=== PATIENT | male | born 1955 | race Caucasian/White ===

== ENCOUNTER → 2017-12-18 11:23 | Outpatient (CLI) | payer OTHER, SELFPAY ==
[2017-12-18 11:53] LABS: Hemoglobin A1C 10.6 % (0.0-7.0)
[2017-12-18 12:17] LABS: Alanine Aminotransferase 110 U/L (12-78); Albumin Level 4.2 gm/dL (3.4-5.0); Albumin/Globulin Ratio 1.3 (1.1-1.8); Alkaline Phosphatase 76 U/L (46-116); Anion Gap 13.9 mEq/L (5-15); Aspartate Amino Transferase 111 U/L (15-37); Bilirubin,Total 0.6 mg/dL (0.2-1.0); Blood Urea Nitrogen 15 mg/dL (7-18); Calcium 9.4 mg/dL (8.5-10.1); Carbon Dioxide 24 mmol/L (21.0-32.0); Chloride 102 mmol/L (98-107); Chol/HDL Ratio 6.4 (1-3.5); Cholesterol 191 mg/dL (140-200); Creatinine,Serum 0.99 mg/dL (0.70-1.30); Estimated Glomerular Filt Rate 77 ml/min (>60); GFR (African American) 93 ML/MIN (>60); Globulin 3.3 gm/dl (1.3-3.2); Glucose 190 mg/dL (74-106); HDL Cholesterol 30 mg/dL (27-67); Potassium 3.9 mmoL/L (3.5-5.1); Sodium 136 mmol/L (136-145); Total Protein,Serum 7.5 gm/dL (6.4-8.2); Triglycerides 441 mg/dL (30-200)
== END ==
PROVIDERS: Visit Provider Family Medicine
DX: E11.9 Type 2 diabetes mellitus without complications (principal); E78.5 Hyperlipidemia, unspecified; E03.9 Hypothyroidism, unspecified
CPT/HCPCS: 36415; 80053; 80061; 83036

== ENCOUNTER → 2018-09-29 07:16 | Outpatient (CLI) | payer OTHER, SELFPAY ==
[2018-09-29 09:32] LABS: Alanine Aminotransferase 89 U/L (12-78); Albumin Level 4.4 gm/dL (3.4-5.0); Albumin/Globulin Ratio 1.3 (1.1-1.8); Alkaline Phosphatase 74 U/L (46-116); Anion Gap 16.1 mEq/L (5-15); Aspartate Amino Transferase 64 U/L (15-37); Bilirubin,Total 0.4 mg/dL (0.2-1.0); Blood Urea Nitrogen 16 mg/dL (7-18); Calcium 9.7 mg/dL (8.5-10.1); Carbon Dioxide 24 mmol/L (21.0-32.0); Chloride 101 mmol/L (98-107); Chol/HDL Ratio 6.6 (1-3.5); Cholesterol 198 mg/dL (140-200); Creatinine,Serum 1.02 mg/dL (0.70-1.30); Estimated Glomerular Filt Rate 74 ml/min (>60); GFR (African American) 90 ML/MIN (>60); Globulin 3.5 gm/dl (1.3-3.2); HDL Cholesterol 30 mg/dL (27-67); Potassium 4.1 mmoL/L (3.5-5.1); Prostate Specific Ag Screen 0.1 ng/mL (0.0-4.0); Sodium 137 mmol/L (136-145); T4 (Thyroxine) 8.9 ug/dl (4.7-13.3); Thyroid Stimulating Hormone 4.56 uIU/ml (0.358-3.740); Total Protein,Serum 7.9 gm/dL (6.4-8.2)
[2018-09-29 10:57] LABS: Glucose 236 mg/dL (74-106)
[2018-09-29 10:58] LABS: Triglycerides 494 mg/dL (30-200)
[2018-09-29 12:35] LABS: Hemoglobin A1C 8.7 % (0.0-7.0)
== END ==
PROVIDERS: Visit Provider Family Medicine
DX: E11.42 Type 2 diabetes mellitus with diabetic polyneuropathy (principal); E03.9 Hypothyroidism, unspecified; E78.5 Hyperlipidemia, unspecified
CPT/HCPCS: 36415; 80053; 80061; 83036; 84436; 84443; G0103

== ENCOUNTER → 2018-11-26 12:29 | Outpatient (CLI) | payer OTHER, SELFPAY ==
--- NOTE | 2018-11-26 12:41 | XR_ITS ---
XR foot RT min 3V HISTORY: ITS.REASON: RT FOOT PAIN ORDERING PHYSICIAN: Nelson Moore MD PATIENT AGE: 63 years COMPARISON: None FINDINGS: Bone density is normal. There is a linear 3 mm lucent line with corticated margins involving the lateral cortex of the proximal shaft of the fifth metatarsal bone. There is no abnormal angulation. There is no other lucent lines elsewhere. Lateral view shows small spurs at the talonavicular joint and along the superior aspect of the navicular/cuneiform joint. There is a 5 mm calcaneal spur and short calcification proximal to the spur likely related to the plantar aponeurosis. There is a small posterior calcaneal spur at the Achilles tendon attachment site. Impression: The linear lucent line involving lateral cortex of the fifth metatarsal bone could be a chronic incompletely healed stress fracture. Calcaneal spur and mild superior degenerative spurring involving the tarsal areas discussed above. Plantar calcification could be sequela from old plantar fasciitis.
== END ==
PROVIDERS: PCP Family Medicine; Visit Provider Family Medicine
DX: M79.671 Pain in right foot (principal)
CPT/HCPCS: 73630

== ENCOUNTER 2018-12-06 13:39 | Outpatient (RCR) | payer OTHER, SELFPAY ==
--- NOTE | 2018-12-06 14:18 | HMH.PTOPEV ---
PT Outpatient Evaluation Rehab PT Outpatient Evaluation Start: 12/06/18 13:50 Freq: Status: Active Protocol: Document 12/06/18 14:08 LARRY (Rec: 12/06/18 14:18 LARRY [id number]) Electronically Signed By See Jarvis, PT 12/06/18 14:08 Outpatient Therapy Subjective History Subjective History Pt reports insidious onset R foot pain beginning on 11/19/18 while working at [employer] ( [id number]). Pt reports localized lateral R foot pain as he worked throught the morning, 'and it got worse as the day went on'. Xrays of R foot have revealed a stress fx of the 5th metatarsal, the area in which the pt describes the localized s/s. Chief Complaint Pain,Swelling Symptom Type Ache,Sharp,Dull Symptoms Relieved By Nothing Symptoms Aggravated By Standing,Physical Activity, Walking Prior Functional Limitations Standing,Walking,Stairs Current Functional Limitations Standing,Walking,Stairs Symptom Description Constant and Continuous Level of pain today (0-10) 8 Pain scale - at its best (0-10) 8 Pain scale - at its worst (0-10) 10 Ankle/Foot Eval Gait Observation General Gait Pattern Observation Antalgic Gait,Decrease Weight Bear (R) Assistive Device Ambulation Assistive Device None Palpation Tenderness right Ankle/Foot Palpation Findings Tenderness Ankle/Foot Palpation Overall Comment 3/4 5th metatarsal ROM left Ankle/Foot Dorsiflexion w/Knee Extended 0-10 Active Range Motion (degrees) Ankle/Foot Plantar Flexion Active Range 0-40 of Motion (degrees) Ankle/Foot Eversion Active Range of 0-20 Motion (degrees) Ankle/Foot Inversion Active Range of 0-30 Motion (degrees) right Ankle/Foot Dorsiflexion w/Knee Extended 0-10 Active Range Motion (degrees) Ankle/Foot Plantar Flexion Active Range 0-40 of Motion (degrees) Ankle/Foot Eversion Active Range of 0-20 Motion (degrees) Ankle/Foot Inversion Active Range of 0-30 Motion (degrees) Ankle/Foot ROM Limitations Pain MMT left Ankle Dorsiflexion Strength Grade 5 Normal Ankle Plantarflexion Strength Grade 5 Normal Foot Eversion Strength Grade 5 Normal Foot Inversion Strength Grade 5 Normal right Ankle Dorsiflexion Strength Grade 4 Good Ankle Plantarflexion Strength Grade 4 Good Foot Eversion Strength Grade 4- Good- Foot Inversion Strength Grade
== END 2018-12-06 13:45 | disposition home or self-care (01) ==
LOC: PT 13:39
PROVIDERS: Visit Provider Emergency Medicine
DX: S92.901K Unspecified fracture of right foot, subsequent encounter for fracture with nonunion (principal); M84.374A Stress fracture, right foot, initial encounter for fracture; M79.671 Pain in right foot; M72.2 Plantar fascial fibromatosis
CPT/HCPCS: 97163

== ENCOUNTER → 2018-12-10 11:55 | Outpatient (CLI) | payer OTHER, SELFPAY ==
--- NOTE | 2018-12-10 12:01 | XR_ITS ---
XR foot RT min 3V HISTORY: ITS.REASON: RIGHT FOOT PAIN , ATTENTION TO 5TH METATARSAL ORDERING PHYSICIAN: Nelson Moore MD PATIENT AGE: 63 years COMPARISON: Right foot 11/26/2018 FINDINGS: There are now has been extension of the radiolucent line proximal shaft fifth metatarsal through the entire width of the metatarsal consistent with a semiacute nondisplaced fracture. The remaining metatarsals and all phalanges appear intact. Again noted are the calcaneal spurs described previously. There is mild spurring of the navicular first cuneiform articulation. IMPRESSION: Semiacute nondisplaced fracture base of fifth metatarsal
== END ==
PROVIDERS: PCP Family Medicine; Visit Provider Family Medicine
DX: M84.374A Stress fracture, right foot, initial encounter for fracture (principal); S99.191A Other physeal fracture of right metatarsal, initial encounter for closed fracture
CPT/HCPCS: 73630

== ENCOUNTER → 2018-12-14 16:21 | Outpatient (CLI) | payer OTHER, SELFPAY ==
--- NOTE | 2018-12-14 16:30 | XR_ITS ---
XR chest 2V HISTORY: ITS.REASON: OCCASIONAL COUGH ORDERING PHYSICIAN: [place] DPM PATIENT AGE: 63 years COMPARISON: 10/31/2013 FINDINGS: The cardiomediastinal silhouette and pulmonary vascularity are within normal limits. The lungs are clear without infiltrates, suspicious nodules, or pleural effusions. Degenerative changes thoracic spine. IMPRESSION: No change with no acute finding
[2018-12-14 17:21] LABS: Basophils # 0.1 K/mm3 (0-0.2); Basophils % 0.6 % (0.1-2.0); Eosinophils # 0.2 K/mm3 (0.0-0.4); Eosinophils % 2.4 % (0.1-12.0); Hematocrit 46.5 % (42.0-52.0); Hemoglobin 14.9 g/dL (14.1-18.0); Lymphocytes # 2.5 K/mm3 (0.7-4.5); Lymphocytes % 30.3 % (10-50); Mean Corpuscular Hemoglobin 27.3 pg (27.0-31.2); Mean Corpuscular Volume 85.5 fl (80-94); Mean Platelet Volume 7.8 fl (7.4-10.4); Monocytes # 0.6 K/mm3 (0.1-1.0); Monocytes % 7.1 % (1.7-9.3); Neutrophils # 4.8 K/mm3 (1.8-7.8); Neutrophils % 59.6 % (37.0-80.0); Platelet Count 187 K/mm3 (142-424); Red Blood Count 5.44 M/mm3 (4.60-6.20); Red Cell Distribution Width 13.6 % (11.5-17.5); White Blood Count 8.1 K/mm3 (4.8-10.8)
[2018-12-14 18:47] LABS: Blood Urea Nitrogen 11 mg/dL (7-18); Calcium 10.1 mg/dL (8.5-10.1); Carbon Dioxide 21 mmol/L (21.0-32.0); Chloride 105 mmol/L (98-107); Creatinine,Serum 1.05 mg/dL (0.70-1.30); Estimated Glomerular Filt Rate 72 ml/min (>60); GFR (African American) 87 ML/MIN (>60); Glucose 194 mg/dL (74-106); Sodium 141 mmol/L (136-145)
== END ==
PROVIDERS: PCP Family Medicine; Visit Provider Podiatrist
DX: Z01.818 Encounter for other preprocedural examination (principal); S99.191A Other physeal fracture of right metatarsal, initial encounter for closed fracture
CPT/HCPCS: 36415; 71046; 80048; 85025; 93005

== ENCOUNTER → 2019-01-12 10:23 | Outpatient (CLI) | payer OTHER, SELFPAY ==
--- NOTE | 2019-01-12 10:27 | XR_ITS ---
PROCEDURE: XR FOOT WT BEARING RT 3V CLINICAL INDICATION: post-op Follow-up surgery COMPARISON: from 12/14/2018 FINDINGS: S/p ORIF 5th metatarsal fracture. Longitudinal screw is present with good alignment of the 5th metatarsal. There is some mild callus formation noted laterally. IMPRESSION: Status post ORIF healing 5th metatarsal fracture Dictated by: Aaron Bah MD 01/13/2019 04:45 Signed by: <Electronically signed by Aaron Bah MD in [place]> 01/13/2019 04:45
== END ==
PROVIDERS: PCP Family Medicine; Visit Provider Podiatrist
DX: Z98.890 Other specified postprocedural states (principal)
CPT/HCPCS: 73630

== ENCOUNTER → 2019-02-02 08:25 | Outpatient (CLI) | payer OTHER, SELFPAY ==
--- NOTE | 2019-02-02 08:30 | XR_ITS ---
PROCEDURE: XR FOOT WT BEARING RT 3V CLINICAL INDICATION: psot-op Follow-up surgery/ORIF COMPARISON: XR FOOT WT BEARING RT 3V from 01/12/2019 FINDINGS: S/p ORIF 5th metatarsal with longitudinal screw in place. Fracture line is somewhat less visible suggesting healing. There is good alignment. Degenerative changes are present in the midfoot and 1st metatarsophalangeal junction and there is some calcification anterior to a small calcaneal spur. IMPRESSION: Healing 5th metatarsal fracture status post ORIF Dictated by: Aaron Bah MD 02/02/2019 09:40 Signed by: <Electronically signed by Aaron Bah MD in [place]> 02/02/2019 09:40
== END ==
PROVIDERS: PCP Family Medicine; Visit Provider Podiatrist
DX: Z98.890 Other specified postprocedural states (principal)
CPT/HCPCS: 73630

== ENCOUNTER 2019-04-12 16:00 | Outpatient (RCR) | payer OTHER, SELFPAY ==
--- NOTE | 2019-02-23 17:40 | HMH.PTOPEV ---
PT Outpatient Evaluation Rehab PT Outpatient Evaluation Start: 02/23/19 16:54 Freq: Status: Active Protocol: Document 02/23/19 17:21 NIKO (Rec: 02/23/19 17:40 [id number]) Electronically Signed By Vinicius Stiles, PT 02/23/19 17:21 Outpatient Therapy Subjective History Subjective History 63 year old male pt. is referred to PT 2 1/2 months post op R Gomez Fx. Injury occured about 3 months ago. Pt . reports he was at work and R foot began to hurt. It gradually got worse until he could barely WB. Pt. reports no BRADFORD. Pt. went to see M.D. and surgery was performed. Pt. has been wearing boot since surgery. He has now been progressed into wearing lace brace in the mornings and the boot during the afternoon. Pt. reports his foot only hurts when pressure is placed on the incision area. Pt. reports he has diabetes and arthritis. States he often has numbness in Mark feet. Note and eval done by student PT Robert Garcia Chief Complaint Pain,Stiff,Weakness Symptom Type Sharp Symptoms Relieved By Rest/Positioning,Ice Symptoms Aggravated By Physical Activity,Walking Prior Functional Limitations None Current Functional Limitations Squatting,Recreation Activity, Walking,Stairs,Balance Symptom Description Intermittent Level of pain today (0-10) 0 Pain scale - at its best (0-10) 0 Pain scale - at its worst (0-10) 3 Ankle/Foot Eval Gait Observation General Gait Pattern Observation Ataxic Gait,Decrease Weight Bear (R),Decrease Stride Lngth (R) Assistive Device Ambulation Assistive Device None Palpation Tenderness right Ankle/Foot Palpation Findings Tenderness Ankle/Foot Palpation Overall Comment TTP over base of 5th metatarsal ROM left Ankle/Foot ROM Reason Not Measured Within Functional Limits Great Toe ROM Reason Not Measured Within Functional Limits right Ankle/Foot Dorsiflexion w/Knee Extended 7 Active Range Motion (degrees) Ankle/Foot Dorsiflexion w/Knee Extended 13 Passive Range (degrees) Ankle/Foot Plantar Flexion Active Range 35 of Motion (de
== END 2019-04-12 16:05 | disposition home or self-care (01) ==
LOC: PT 16:00
PROVIDERS: Visit Provider Podiatrist
DX: S99.191D Other physeal fracture of right metatarsal, subsequent encounter for fracture with routine healing (principal); Z98.890 Other specified postprocedural states
CPT/HCPCS: 97010; 97014; 97110; 97163; 97164; G0283

== ENCOUNTER → 2020-02-10 07:33 | Outpatient (CLI) | payer OTHER, SELFPAY ==
[2020-02-10 10:15] LABS: Alanine Aminotransferase 63 U/L (12-78); Albumin Level 4.8 g/dl (3.5-5.0); Albumin/Globulin Ratio 1.6 (1.1-1.8); Alkaline Phosphatase 106 U/L (38-126); Anion Gap 18.8 mEq/L (5-15); Aspartate Amino Transferase 96 U/L (17-59); Bilirubin,Total 0.6 mg/dl (0.2-1.3); Blood Urea Nitrogen 18 mg/dl (9-20); Calcium 10.7 mg/dl (8.4-10.2); Carbon Dioxide 22 mmol/L (22.0-30.0); Chloride 103 mmol/L (98-107); Chol/HDL Ratio 6.5 (1-3.5); Cholesterol 213 mg/dl (140-200); Estimated Glomerular Filt Rate 76 ml/min (>60); GFR (African American) 92 ML/MIN (>60); Glucose 276 mg/dl (74-100); HDL Cholesterol 33 mg/dl (40-60); Potassium 4.8 mmoL/L (3.5-5.1); Sodium 139 mmol/L (136-145); Total Protein,Serum 7.8 g/dl (6.3-8.2)
[2020-02-10 10:23] LABS: Triglycerides 792 mg/dl (30-150)
[2020-02-10 10:26] LABS: Direct LDL Cholesterol 84.16 mg/dL (100-129)
[2020-02-10 10:46] LABS: Prostate Specific Ag Screen 0.1 ng/ml (0.0-4.0)
[2020-02-10 14:24] LABS: Hemoglobin A1C 12.2 % (4.0-6.0)
== END ==
PROVIDERS: Visit Provider Family Medicine
DX: E11.42 Type 2 diabetes mellitus with diabetic polyneuropathy (principal); E03.9 Hypothyroidism, unspecified; E78.5 Hyperlipidemia, unspecified; Z12.5 Encounter for screening for malignant neoplasm of prostate
CPT/HCPCS: 36415; 80053; 80061; 83036; G0103

== ENCOUNTER 2020-02-15 09:35 | Emergency (ER) | payer OTHER, SELFPAY ==
[2020-02-15 09:40] VITALS: BP 137/90; PULSE 79; RESP 19; TEMP 36.6; O2SAT 99; BMI 30.7
--- NOTE | 2020-02-15 09:52 | HMH.EDUTC ---
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 - Gaurang Inquiry Pt receiving controlled substance: No Vital Signs: 02/15/20 09:40 02/15/20 10:12 Temperature 97.8 F 97.8 F Temperature Source Oral Oral Pulse Rate 79 Pulse Rate [Left] 79 Respiratory Rate 19 19 Blood Pressure 137/90 Blood Pressure [Right Arm] 137/90 Blood Pressure Mean [Right Arm] 105 Blood Pressure Source [Right Arm] Automatic Cuff Blood Pressure Position [Right Arm] Sitting 02 Sat by Pulse Oximetry 99 Oxygen Delivery Method Room Air Orders (Tests/Meds): ORDERS Category Date Time Status CXR 2 view (NOT portable) [XR chest 2V] Stat Exams 02/15/20 09:57 Taken Covid-19 Nasal PCR Sendout Jaron Stat Lab 02/15/20 10:00 Received 12-lead EKG Request [ECG Request by /Juanjose] Stat Y 02/15/20 10:35 Ordered - Radiology Data #1 Image(s): Chest Image Reviewed: Yes I reviewed the patient's radiology image Preliminary Findings: No Infiltrates Seen - ECG Data Tracing #1 ECG initial impression date: 02/15/20 ECG initial impression time: 10:58 ECG normal with no acute: arrhythmias, ischemia, conduction abnormalities, chamber hypertrophy Normal Sinus Rhythm: Yes ECG compared to prior tracings: there are no significant changes Medical Decision Narrative: I had him transferred to the er for further evaluation due to the new onset dyspnea upon exertion, his history of diabetes and his history of the cva. [facility] [place] HPI - General Stated complaint: cg,shaniqua gatica sob Time Seen by Provider: 02/15/20 09:40 - History of Present Illness Provider Complaint: He c/o feeling short of breath. He states that this symptoms started a one day last week (approx), but since Thursday (4 days) his shortness of breath upon exertion has became significantly worse. He denies any chest pain. He is diabetic. He has a history of having a CVA several years ago, but he has denies any lasting effect from this. - Related Data Home Medications Medication Instructions Recorded Confirmed esomeprazole magnesium 20 mg 20 mg PO DAILY 12/14/18 04/08/19 capsule,delayed release gabapentin 300 mg capsule 300 mg PO BID #180 cap 12/14/18 04/08/19 levothyroxine 75 mcg tablet 75 mcg PO DAILY #90 tab 12/14/18 04/08/19 sitagliptin 50 mg-metformin ER 1 tab PO DAILY #60 tab 12/14/18 04/08/19 1,000 mg tablet,extended release 24h mp atorvastatin 40 mg tablet 40 mg PO DAILY #90 tab 01/05/19 04/08/19 empagliflozin 25 mg tablet 25 mg PO DIRECTED #30 tab 01/05/19 04/08/19 Glucosamine Sulfate Dipot Chlr 1,000 mg PO DAILY 03/31/19 04/08/19 [Glucosamine] Allergies Allergy/AdvReac Type Severity Reaction Status Date / Time acetaminophen [From PERCOCET] Allergy Mild Verified 02/15/20 10:06 oxycodone [From PERCOCET] Allergy Mild Verified 02/15/20 10:06 [facility] History - Hepatitis A Screen Attestation statement:: This patient has been screened for Hepatitis A risk factors. I have reviewed the patient's past medical history: Yes Medical History: Reports:: Diabetes Mellitus Type 2, Gastroesophageal Reflux Disease(GERD), Hyperlipidemia Denies:: Cancer, Diabetes Mellitus Type 1, Internal Pacemaker, MRSA, Seizures Other Medical History: Reports: Hypothyroidism, Thyroid Disease. Denies: Blood Transfusion React
--- NOTE | 2020-02-15 09:57 | XR_ITS ---
PROCEDURE: XR CHEST 2V CLINICAL HISTORY: cough COMPARISON: CR CXR CHEST(2 VIEWS-NOT PORTABLE) from 07/04/2013 CR CXR CHEST(2 VIEWS-NOT PORTABLE) from 10/31/2013 FINDINGS: The cardiomediastinal silhouette and pulmonary vascularity are within normal limits. The lungs are clear without infiltrates, suspicious nodules, or pleural effusions. Old fracture of the left 6th rib anteriorly. Degenerative changes thoracic spine. IMPRESSION: No acute findings. Dictated by: Aaron Bah MD 02/15/2020 11:21 Aaron Bah MD in [place] 02/15/2020 11:21
[2020-02-15 10:12] VITALS: BP 137/90; PULSE 79; RESP 19; TEMP 36.6; O2SAT 99
--- NOTE | 2020-02-15 10:43 | ECG_ITS ---
APPROVED REPORT Exam: Resting ECG HR:76 bpm ECG Measurements Heart Rate 76 AXES WA 152 P 53 QRSd 98 QRS 21 QT 394 T 38 QTc 443 <Conclusion> Normal sinus rhythm Normal ECG Electronically signed by : Yohannes Mulligan, 02/17/2020 07:30:06
[2020-02-15 11:02] VITALS: BP 162/109; PULSE 77; RESP 17; TEMP 36.4; O2SAT 98; BMI 25.0
--- NOTE | 2020-02-15 11:03 | HMH.EDGENADL ---
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 If you have any new, changing, worsening, or concerning symptoms, come back to the emergency department. Referrals: Nelson Moore MD [Primary Care Provider] - - Critical Care Critical Care Time: No Attestation: On 02/15/20, the high probability of a clinically significant, sudden or life threatening deterioration of the following system(s) required my full and direct attention, intervention and personal management. The time I documented below is in addition to time spent performing reported procedures but includes the following listed in this critical care notation. Medical Decision Making - Medical Records Medical records reviewed: Yes: I reviewed the patient's medical records. MR Comment: 84-year-old male with history of diabetes presents the emergency department with persistent cough and shortness of breath that he states has resolved. He denies any headache or shortness of breath at this time. He denies chest pain. He arrives to the ED hemodynamically stable, with reassuring vital signs, and looks well on exam. He is not tachypneic and oxygen saturation is 94% on room air. He has been coronavirus swabbed, will get labs and reassess. On reassessment, patient remains well. Labs reviewed, he normally has an anion gap, looking at prior visits, but checked a VBG. He was given some fluids, he states that his son is in the hospital and he does not want a further work-up at this time. Given the he has no complaints, states that he feels well and wants to leave, will discharge him. No emergent reason to do further evaluation at this time, I did advise that he follow closely with his PCP in the next couple of days. He was given strict return precautions and discharge instructions including follow-up for further evaluation and treatment and verbalized understanding and agreement to the plan. Safe to discharge. - Gaurang Inquiry Pt receiving controlled substance: No Vital Signs: 02/15/20 09:40 02/15/20 10:12 02/15/20 11:02 Temperature 97.8 F 97.8 F 97.5 F L Temperature Source Oral Oral Oral Pulse Rate 79 Pulse Rate [Left] 79 77 Respiratory Rate 19 19 17 Blood Pressure 137/90 Blood Pressure [Right Arm] 137/90 162/109 H Blood Pressure Mean [Right Arm] 105 126 Blood Pressure Source [Right Arm] Automatic Cuff Automatic Cuff Blood Pressure Position [Right Arm] Sitting Sitting 02 Sat by Pulse Oximetry 99 98 Oxygen Delivery Method Room Air Room Air 02/15/20 11:07 02/15/20 12:26 02/15/20 12:30 Temperature Temperature Source Pulse Rate Pulse Rate [Left] 77 69 68 Respiratory Rate 19 Blood Pressure Blood Pressure [Right Arm] 137/86 146/91 H 138/91 H Blood Pressure Mean [Right Arm] 103 109 106 Blood Pressure Source [Right Arm] Automatic Cuff Automatic Cuff Blood Pressure Position [Right Arm] Sitting Sitting 02 Sat by Pulse Oximetry 95 97 97 Oxygen Delivery Method Room Air Room Air Room Air - Lab Data Lab Results 02/15/20 11:07: WBC 7.8, RBC 5.61, Hgb 16.7, Hct 49.0, MCV 87.5, MCH 29.9, MCHC 34.1, RDW 14.3, Plt Count 173, MPV 8.1, Neut % (Auto) 70.0, Lymph % (Auto) 21.7, [place] % (Auto) 5.9, Eos % (Auto) 1.9, Baso % (Auto) 0.5, Neut # (Auto) 5.4, Lymph # (Auto) 1.7, [place] # (Auto) 0.5, Eos # (Auto) 0.2, Baso # (Auto) 0.0 02/15/20 11:07: Sodium 140, Potassium 4.0, Chloride 105, Carbon Dioxide 22, Anion Gap 17
[2020-02-15 11:07] VITALS: BP 137/86; PULSE 77; RESP 19; O2SAT 95
[2020-02-15 11:20] LABS: Chloride 105 mmol/L (98-107); Sodium 140 mmol/L (136-145)
[2020-02-15 11:23] LABS: Blood Urea Nitrogen 13 mg/dl (9-20); Calcium 10.4 mg/dl (8.4-10.2); Carbon Dioxide 22 mmol/L (22.0-30.0); Creatinine Clearance Estimated 91 mL/min (50-200); Estimated Glomerular Filt Rate 76 ml/min (>60); GFR (African American) 92 ML/MIN (>60); Glucose 265 mg/dl (74-100)
[2020-02-15 11:27] LABS: Basophils % 0.5 % (0.1-2.0); Eosinophils # 0.2 K/mm3 (0.0-0.4); Eosinophils % 1.9 % (0.1-12.0); Hemoglobin 16.7 g/dL (14.1-18.0); Lymphocytes # 1.7 K/mm3 (0.7-4.5); Lymphocytes % 21.7 % (10-50); Mean Corpuscular HGB Conc 34.1 g/dL (31.8-35.4); Mean Corpuscular Hemoglobin 29.9 pg (27.0-31.2); Mean Corpuscular Volume 87.5 fl (80-94); Mean Platelet Volume 8.1 fl (7.4-10.4); Monocytes # 0.5 K/mm3 (0.1-1.0); Monocytes % 5.9 % (1.7-9.3); Neutrophils # 5.4 K/mm3 (1.8-7.8); Platelet Count 173 K/mm3 (142-424); Red Blood Count 5.61 M/mm3 (4.60-6.20); Red Cell Distribution Width 14.3 % (11.5-17.5); White Blood Count 7.8 K/mm3 (4.8-10.8)
--- NOTE | 2020-02-15 11:35 | PC.NURSE ---
Spoke with Calista in lab, no extra blood needed for the VBG, they can run that off what blood they have.
[2020-02-15 11:36] LABS: Troponin I < 0.01 ng/ml (0.00-0.034)
[2020-02-15 12:26] VITALS: BP 146/91; PULSE 69; O2SAT 97
[2020-02-15 12:30] VITALS: BP 138/91; PULSE 68; O2SAT 97
[2020-02-15 13:12] LABS: VBG PCO2 43.3 mmol/L (35-51); VBG PH 7.26 mmol/L (7.31-7.41); VBG PO2 53.2 mmol/L (28-40); VBG Total CO2 20.4 mmol/L (23-27)
[2020-02-17 10:25] LABS: Covid-19 Nasal PCR Sendout Lex NOT DETECTED
--- NOTE | 2020-02-17 10:46 | PC.NURSE ---
Spoke to patient regarding his COVID19 swab results. Informed him they were negative.
== END 2020-02-15 13:40 | disposition still patient (30) ==
LOC: UTC 09:41 → ER 10:52
PROVIDERS: Nurse Practitioner Family; Emergency Provider Emergency Medicine; PCP Family Medicine
DX: E11.65 Type 2 diabetes mellitus with hyperglycemia (principal); Z03.818 Encounter for observation for suspected exposure to other biological agents ruled out; E78.5 Hyperlipidemia, unspecified; E03.9 Hypothyroidism, unspecified; Z88.5 Allergy status to narcotic agent; Z86.73 Personal history of transient ischemic attack (TIA), and cerebral infarction without residual deficits; K21.9 Gastro-esophageal reflux disease without esophagitis; Z79.899 Other long term (current) drug therapy
CPT/HCPCS: 71046; 80048; 82803; 84484; 85025; 93005; 99291; U0004

== ENCOUNTER 2020-04-30 13:26 | Emergency (ER) | payer OTHER, SELFPAY ==
[2020-04-30 13:50] VITALS: BP 118/79; PULSE 84; RESP 20; TEMP 37.1; O2SAT 97; BMI 31.9
--- NOTE | 2020-04-30 14:29 | HMH.EDUTC ---
[facility] [place] Clinical Impression: Bronchitis, Exposure to COVID-19 virus Disposition: Home, Self-Care Condition on Discharge: Good Instructions: DI for Acute Bronchitis, Preventing the Spread of Coronavirus Discharge Instructions Additional Instructions: Drink plenty of fluids. Take tylenol or ibuprofen for pain or fever. Take the medications as directed. Follow up with your regular doctor. GO TO THE ER FOR ANY WORSENING SYMPTOMS Prescriptions: Benzonatate [Tessalon Perle 100mg Cap] 100 mg PO TIDP PRN #30 cap PRN Reason: Cough Transmission Status: Received by [id number] Azithromycin [Z-Clifton 250mg Tab*] 250 mg PO UD DOSE PK #6 tab Transmission Status: Received by [id number] Referrals: Nelson Moore MD [Primary Care Provider] - Forms: Work/School Release Time of Disposition: 14:33 Medical Decision Making - Medical Records Medical records reviewed: No: I reviewed the patient's medical records. - Gaurang Inquiry Pt receiving controlled substance: No Vital Signs: 04/30/20 13:50 04/30/20 14:59 Temperature 98.8 F 98.8 F Temperature Source Oral Oral Pulse Rate 84 Pulse Rate [Right Brachial] 84 Respiratory Rate 20 14 Blood Pressure 118/79 Blood Pressure [Right Arm] 118/79 Blood Pressure Mean [Right Arm] 92 Blood Pressure Source [Right Arm] Automatic Cuff Blood Pressure Position [Right Arm] Sitting 02 Sat by Pulse Oximetry 97 Oxygen Delivery Method Room Air Orders (Tests/Meds): ORDERS Category Date Time Status Covid-19 Nasal PCR Sendout Jaron Routine Lab 04/30/20 13:50 Received [facility] [place] HPI - General Stated complaint: wants covid test Time Seen by Provider: 04/30/20 14:30 Mode of Arrival: Ambulatory Source of Information: Patient Limitations: No Limitations Description of Symptoms (Recalled from Triage Doc. by RN): PATIENT C/O COUGH AND CHEST TIGHTNESS. REQUESTING COVID TEST HEENT Symptoms (Recalled from RN notes): No Resp Symptoms (Recalled from RN notes): Yes Skin Symptoms (Recalled from RN notes): No MS Symptoms (Recalled from RN notes): No Functional Status (Recalled from RN notes): WNL - History of Present Illness Provider Complaint: he states that for the past 2 days he has had a cough and sinus drainage. He denies any known exposure to covid. - Related Data Home Medications Medication Instructions Recorded Confirmed esomeprazole magnesium 20 mg 20 mg PO DAILY 12/14/18 04/08/19 capsule,delayed release gabapentin 300 mg capsule 300 mg PO BID #180 cap 12/14/18 04/08/19 levothyroxine 75 mcg tablet 75 mcg PO DAILY #90 tab 12/14/18 04/08/19 sitagliptin 50 mg-metformin ER 1 tab PO DAILY #60 tab 12/14/18 04/08/19 1,000 mg tablet,extended release 24h mp atorvastatin 40 mg tablet 40 mg PO DAILY #90 tab 01/05/19 04/08/19 empagliflozin 25 mg tablet 25 mg PO DIRECTED #30 tab 01/05/19 04/08/19 Glucosamine Sulfate Dipot Chlr 1,000 mg PO DAILY 03/31/19 04/08/19 [Glucosamine] Previous Rx's Medication Instructions Recorded Azithromycin [Z-Clifton 250mg Tab*] 250 mg PO UD DOSE PK #6 tab 04/30/20 Benzonatate [Tessalon Perle 100mg 100 mg PO TIDP PRN #30 cap 04/30/20 Cap] Allergies Allergy/AdvReac Type Severity Reaction Status Date / Time acetaminophen [From PERCOCET] Allergy Mild Verified 02/15/20 10:06 oxycodone [From PERCOCET] Allergy Mild Verified 02/15/20 10:06 - Worker's Comp Is this a Worker's Comp case?: No [facility] History - Hepatitis A Screen Drug use history?: No High risk sexual behaviors?: No History of sexually transmitted infection?: No Currently employed?: No Childcare worker?: No Do you have indoor plumbing?: Yes Do you have electricity?: Yes Attestation statement:: This patient has been screened for Hepatitis A risk factors. I have reviewed the patient's past medical history: Yes Medical History: Reports:: Diabetes Mellitus Type 2, Gastroesophageal Reflux Disease(GERD), Hyperlipidemia
[2020-04-30 14:59] VITALS: BP 118/79; PULSE 84; RESP 14; TEMP 37.1; O2SAT 98
[2020-05-02 15:25] LABS: Covid-19 Nasal PCR Sendout Lex Positive
--- NOTE | 2020-05-02 16:37 | PC.NURSE ---
CALLED PT TO LET THEM KNOW THAT THERE TEST RESULTS CAME BACK POSITIVE.
== END 2020-04-30 15:01 | disposition home or self-care (01) ==
PROVIDERS: Emergency Provider Nurse Practitioner Family; PCP Family Medicine
DX: U07.1 COVID-19 (principal); K21.9 Gastro-esophageal reflux disease without esophagitis; E78.5 Hyperlipidemia, unspecified; E03.9 Hypothyroidism, unspecified; E11.9 Type 2 diabetes mellitus without complications; Z79.899 Other long term (current) drug therapy
CPT/HCPCS: 99201; U0004

== ENCOUNTER → 2021-11-05 11:44 | Outpatient (CLI) | payer OTHER, SELFPAY ==
--- NOTE | 2021-11-05 11:51 | XR_ITS ---
FINAL REPORT CLINICAL HISTORY: SOB; COUGH COMPARISON: February 05, 2020 FINDINGS: Two views of the chest were obtained. The heart size and pulmonary vascularity are within normal limits. The mediastinum is normal. No acute pulmonary abnormality is identified. There is no pneumothorax. The bony thorax is intact. IMPRESSION: No active cardiopulmonary disease. Reviewed, Interpreted and Dictated by Eric Sorto III, MD Transcribed by Donna Schwab Authenticated and [facility]
== END ==
PROVIDERS: PCP Family Medicine; Visit Provider Family Medicine
DX: R05.9 Cough, unspecified (principal)
CPT/HCPCS: 71046

== ENCOUNTER → 2022-02-05 12:42 | Outpatient (CLI) | payer OTHER, SELFPAY ==
[2022-02-05 13:35] VITALS: PULSE 84; PULSE 87
--- NOTE | 2022-02-05 13:56 | CA_ITS ---
APPROVED REPORT EXAM: Comprehensive 2D, Doppler, and color-flow Echocardiogram Maths Tutor: Cathryn Souza RT(R) Ht: 5 ft 7 in Wt: 209lbs BSA: 2.06 BP: 130/84 mmHg Indications: AGUAYO, hyperlipidemia, DM, GERD 2D Dimensions LVOT 2.25 cm (M/F) 1.5-2.5 LA Volume 24.50 mL LA Volume Index 11.89 mL/m2 (M/F) 16-34 M-Mode Dimensions RVDd 3.26 cm (0.9-2.6) LA Diam 3.23 cm (1.9-4.0) LVDd 5.11 cm (3.5-5.7) Ao Diam 2.70 cm (2.0-3.7) LVDs 3.82 cm (3.5-5.7) IVSd 1.17 cm (0.6-1.1) PWd 0.97 cm (0.6-1.1) EF (Teich) 49.60% FS 25.20% EDV (Teich) 124.40 mL ESV (Teich) 62.70 mL LV Diastology E Decel Time 257.00 (160-240 msec) E/A Ratio 0.8 Mitral Valve MV E Max Aldo. 54.00 (40-130 cm/s) MV A Velocity 65.00 (40-130 cm/s) E/A Ratio 0.83 MV Decel. Time 257.00 (160-240 ms) MV PHT 75.00 ms Left Ventricle Left atrium is mildly enlarged, left ventricle normal size mild concentric left ventricular hypertrophy, estimated ejection fraction 55% with no regional wall motion abnormality, grade 1 diastolic dysfunction seen without tissue Doppler evidence of reduced left atrial pressure. Right Ventricle Right atrium and right ventricle are normal size and contractility. Aortic Valve Aortic valve is thickened and calcified without Doppler evidence of aortic stenosis or aortic insufficiency. Mitral Valve Mitral valve grossly normal, there is trace mitral regurgitation. Tricuspid Valve Tricuspid grossly normal, there is trace tricuspid regurgitation, tricuspid regurgitation jet velocity is inadequate for calculation of the right ventricular systolic pressure. Pulmonic Valve Pulmonic valve is poorly visualized. Great Vessels Aortic root is normal size. Inferior vena cava is normal size with normal inspiratory collapse. Pericardium No significant pericardial effusion noted. Conclusion 1. Normal left ventricular size mild concentric left ventricular hypertrophy, estimated ejection fraction 55% with no regional wall motion abnormality, grade 1 diastolic dysfunction seen without tissue Doppler evidence of raise left atrial pressure. 2. Trace mitral and tricuspid regurgitation. 3. No significant pericardial effusion. 4. Inferior vena cava normal size with normal inspiratory collapse. Electronically signed by : Santos Stein MD 02/05/2022 20:13:32
== END ==
PROVIDERS: PCP Family Medicine; Visit Provider Family Medicine
DX: R06.09 Other forms of dyspnea (principal)
CPT/HCPCS: 93306; 94060; 94640; 94727; 94729

== ENCOUNTER → 2022-10-21 12:13 | Outpatient (CLI) | payer MEDICARE, OTHER, SELFPAY ==
--- NOTE | 2022-10-21 12:21 | XR_ITS ---
FINAL REPORT CLINICAL HISTORY: ABD PAIN. FINDINGS: Chest: A single view of the chest demonstrates no acute cardiopulmonary process. Abdomen: Flat and upright views of the abdomen demonstrate a nonspecific bowel gas pattern with scattered air-fluid levels on the upright view. There is no free air. IMPRESSION: No acute process. Reviewed, Interpreted and Dictated by Eric Sorto III, MD Transcribed by Carlos Gustafson Authenticated and [facility]
== END ==
PROVIDERS: PCP Family Medicine; Visit Provider Family Medicine
DX: R10.9 Unspecified abdominal pain (principal)
CPT/HCPCS: 74021

== ENCOUNTER 2023-11-16 11:47 | Outpatient (CLI) | payer MEDICARE, OTHER, SELFPAY ==
--- NOTE | 2023-11-16 11:56 | XR_ITS ---
FINAL REPORT CLINICAL HISTORY: OPEN WOUND OF LT FOOT FINDINGS: LEFT FOOT Three views of the left foot demonstrate no acute fracture or dislocation. The visualized joint spaces are normally aligned. There is no definite bone destruction. There is soft tissue swelling near the fifth MTP joint. No gas is seen in the soft tissues. IMPRESSION: Soft tissue swelling near the fifth MTP joint without definite bone destruction or gas in the soft tissues. Reviewed, Interpreted and Dictated by Charlee Nam MD Transcribed by Christine Mccray Authenticated and [facility]
== END 2023-11-16 23:59 | disposition home or self-care (01) ==
PROVIDERS: PCP Family Medicine; Visit Provider Family Medicine
DX: M79.672 Pain in left foot (principal); S91.302A Unspecified open wound, left foot, initial encounter
CPT/HCPCS: 73630

== ENCOUNTER 2024-02-02 09:00 | Outpatient (RCR) | payer MEDICARE, MEDICAID, SELFPAY ==
--- NOTE | 2023-12-14 08:42 | HMH.PTOPWND ---
Rehab Outpt Wound Evaluation Rehab OP Wound Evaluation Start: 12/14/23 07:54 Freq: Status: Active Protocol: Document 12/14/23 08:21 PHOLEWIS (Rec: 12/14/23 08:42 PHORNE [id number]) E-signed By Ruddy Cárdenas PT Subjective/History History History This is the initial wound care eval for Radhames Adams, 68 yowm who presents with L lateral foot wound x ~ 1 mo with insidious onset. He reports, I didn't have any problems in the morning when I went to [facility] and by the time I got home my foot was red and all swollen up. He had x-ray performed with no fxs or destruction of the bone noted. He reports he has been treating his wound with epsom salt water soaks, peroxide, and OTC antibiotic ointment. He also was prescribed a round of 2 different oral abx by PCP. He has PMH of DM with neuropathy. Subjective Subjective He reports no c/o pain in his L foot at this time. No TTP noted. Monofilament sensation testing with 10g filament shows decreased sensation from the L ankle distally. New diagnosis of cancer in past 12 No months? 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 a Chronic Wound Yes Wound Length (cm) 1.4 Wound Width (cm) 1.6 Wound Depth (cm) 0.1 Wound Bed Appearance Beefy Red Percentage Granulated (%) 99 Wound Margins Description Well Defined Surrounding Tissue Appearance [place] Drainage Description Serosanguineous Drainage Amount Scant Wound Topical Solution/Irrigant Saline Irrigant Primary Dressing Composite Comment optiofoam gentle border lite Wound Debridement Method Sharps,Forceps,Gauze, Mechanical Wound Debridement Amount of Tissue Minimal Removed Dressing Change Patient Tolerance Tolerated Well Toribio-Arellano Wound Assessment Tool Assessment Wound size 1=Length x Width <4 sq cm Wound depth 3=Full thickness skin loss involving damage or necrosis of Wound edges 3=Well-defined, not attached to wound base Wound undermining 1=None present Necrotic tissue type 1=Non visible Necrotic tissue amount 1=None visible Exudate type 3=Serosanguineous: thin, watery, pale red/pink Exudate amount 2=Scant, wound moist but no observable exudate Skin color surrounding wound 1=[place] or normal for ethnic group Peripheral tissue edema 1=No swelling or edema Peripheral tissue induration 1=None present Granulation tissue 2=Bright, beefy red;75% to 100 % of wound filled &/or tissue overgrowth Epithelialization 5= < 25% wound covered Wound assessment total score 25 Wound Problems/Impairments Impairments Problems/Impairmments Wound Care Needs,Impaired Self Care/Self Management Prognosis Rehab Potential Good Comment Skilled therapy is necessary to decrease wound healing time and improve tissue health to return pt to [facility]. Clinical Impression Consistent with Diagnosis Yes Short Term Goals Number of Weeks 4 Decrease Wound Area Yes: by 25% Correction Goals Number of Weeks 8 Decrease Wound Area Yes: by 75% Patient to be Ind w/ Home Wound Care/ Yes Dressing Changes Outpatient Therapy Plan of Care Treatment Plan May Include Therapeutic Exercise Including Home Yes Exercise Program Manual Therapy Techniques Yes Neuromuscular Re-education Yes Therapeutic Activities to Return to Yes Previous Functional/Work Level ADL/Self Care Education Yes Orthotics/Bracing/Splinting Yes Manual Lymphatic Drainage Yes Wound Care Yes Eval/Re-Eval Yes Frequency Times per week 1-2 Duration Number of Weeks 6-8 Addendums This patient is a candidate for social No or vocational rehab? Patient/Guardian verbally acknowledges Yes understanding of treatment program and consents to further treatment? Patient/Guardian verbally acknowledges Yes understanding of diagnosis, prognosis and goals for treatment? Eval Complexity PT Charges 70260 - High Complexity PHYSICIAN CERTIFICATION: I certify the specified therapy services for Radhames Adams are required, authorized, and reviewed every 30 days.
--- NOTE | 2024-01-14 14:20 | HMH.RHREAS ---
Rehab Reassessment Rehab OP Re-assessment Start: 12/14/23 07:54 Freq: Status: Active Protocol: Document 01/14/24 14:09 DANAGeorgiaHAYDEN (Rec: 01/14/24 14:15 PHOLEWIS [id number]) E-signed By Ruddy Cárdenas, PT [place] Wound Assessment Tool Assessment Wound size 1=Length x Width <4 sq cm Wound depth 3=Full thickness skin loss involving damage or necrosis of Wound edges 3=Well-defined, not attached to wound base Wound undermining 1=None present Necrotic tissue type 1=Non visible Necrotic tissue amount 1=None visible Exudate type 3=Serosanguineous: thin, watery, pale red/pink Exudate amount 2=Scant, wound moist but no observable exudate Skin color surrounding wound 1=[place] or normal for ethnic group Peripheral tissue edema 1=No swelling or edema Peripheral tissue induration 1=None present Granulation tissue 2=Bright, beefy red;75% to 100 % of wound filled &/or tissue overgrowth Epithelialization 5= < 25% wound covered Wound assessment total score 25 Rehab Re-assessment Subjective Subjective Pt continues to have no c/o pain in the L 5th toe area. He has intermittent increased erythema throughout the dorian- wound skin and L 5th toe and MT. I've got a doctor's appointment today, just in case. Objective Objective Notes L Lateral Foot wound: L= 1.0 cm, W= 1.6 cm, D= 0.1 cm. 29% wound surface area is healed. Assessment Progress Assessment Progressing as Expected Assessment Notes Pt has shown significant reduction in overall wound size at this time. He continues to need skilled therapy services to improve wound healing and return to PLOF. Patient goals met ST/2 LT/2 Plan Plan Continue per initial POC. Frequency of Therapy 1-2 x/wk Duration of therapy 4 wks Time and Billing Re-Eval Time 10 Re-Eval Billing Units 1 PHYSICIAN CERTIFICATION: I certify the specified therapy services for Radhames Adams are required, authorized, and reviewed every 30 days.
== END 2024-02-02 09:05 | disposition home or self-care (01) ==
LOC: PT 09:00
PROVIDERS: Visit Provider Family Medicine
DX: M79.672 Pain in left foot (principal); S91.302A Unspecified open wound, left foot, initial encounter
CPT/HCPCS: 97163; 97164; 97597

== ENCOUNTER 2024-04-19 08:00 | Outpatient (RCR) | payer MEDICARE, MEDICAID, SELFPAY ==
--- NOTE | 2024-03-22 11:40 | HMH.PTOPWND ---
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 He reports wound was almost completely healed after being present for 3-4 mos overall, but has worsened over the past 3-4 weeks. He reports he has been taking care of his who recently had surgery and this may have contributed to the worsening of his wound. He reports no c/ o pain at this time and he only reports DM for his PMH. Subjective Subjective Currently wound is minimally draining and appears healthy at the base. Moderate hyperkeratotic rim noted. New diagnosis of cancer in past 12 No months? 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 Chronic Wound Yes Wound Length (cm) 1.0 Wound Width (cm) 0.1 Wound Depth (cm) 0.2 Wound Bed Appearance Beefy Red Wound Margins Description Well Defined Undermining Position 2-5 o'clock Undermining Depth (cm) 0.3 Surrounding Tissue Appearance [place] Drainage Description Serosanguineous Drainage Amount Small Wound Topical Solution/Irrigant Saline Irrigant Primary Dressing Composite Comment optifoam gentle border lite Wound Debridement Method Sharps,Gauze,Mechanical Wound Debridement Amount of Tissue Minimal Removed Dressing Change Patient Tolerance Tolerated Well Toribio-Arellano Wound Assessment Tool Assessment Wound size 1=Length x Width <4 sq cm Wound depth 3=Full thickness skin loss involving damage or necrosis of Wound edges 3=Well-defined, not attached to wound base Wound undermining 2=Undermining <2 cm in any area Necrotic tissue type 1=Non visible Necrotic tissue amount 1=None visible Exudate type 3=Serosanguineous: thin, watery, pale red/pink Exudate amount 3=Small Skin color surrounding wound 1=[place] or normal for ethnic group Peripheral tissue edema 1=No swelling or edema Peripheral tissue induration 1=None present Granulation tissue 2=Bright, beefy red;75% to 100 % of wound filled &/or tissue overgrowth Epithelialization 5= < 25% wound covered Wound assessment total score 27 Wound Problems/Impairments Impairments Problems/Impairmments Impaired Shower/Bathing, Impaired Household Care,Wound Care Needs,Impaired Self Care/ Self Management Prognosis Rehab Potential Good Comment skilled therapy is indicate to reduce overall wound size and return pt to PLOF. 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 Number of Weeks 6-8 Decrease Wound Area Yes: by 75% Patient to be Ind w/ HEP Yes Patient to be Ind w/ Home Wound Care/ Yes Dressing Changes Outpatient Therapy Plan of Care Treatment Plan May Include Therapeutic Exercise Including Home Yes Exercise Program Manual Therapy Techniques Yes Neuromuscular Re-education Yes Therapeutic Activities to Return to Yes Previous Functional/Work Level ADL/Self Care Education Yes Ultrasound/Phonophoresis Yes Orthotics/Bracing/Splinting Yes Manual Lymphatic Drainage Yes Wound Care Yes Eval/Re-Eval Yes Frequency Times per week 1-2 Duration Number of Weeks 6-8 Addendums This patient is a candidate for social No or vocational rehab? Patient/Guardian verbally acknowledges Yes understanding of treatment program and consents to further treatment? Patient/Guardian verbally acknowledges Yes understanding of diagnosis, prognosis and goals for treatment? Eval Complexity PT Charges 39198 - High Complexity PHYSICIAN CERTIFICATION: I certify the specified therapy services for Radhames Adams are required, authorized, and reviewed every 30 days.
== END 2024-04-19 23:59 | disposition home or self-care (01) ==
LOC: PT 08:00
PROVIDERS: Visit Provider Family Medicine
DX: E11.621 Type 2 diabetes mellitus with foot ulcer (principal); S91.302A Unspecified open wound, left foot, initial encounter
CPT/HCPCS: 97163; 97597

== ENCOUNTER 2024-05-02 11:57 | Day surgery (SDC) | payer MEDICARE, MEDICAID, SELFPAY ==
[2024-04-26 16:18] VITALS: BMI 31.0
[2024-05-02 12:37] VITALS: BP 120/80; PULSE 66; RESP 18; TEMP 36.1; O2SAT 97
[2024-05-02] MEDS: LACTATED RINGERS 1000ML 1,000 ML 25 ML IV (12:52)
[2024-05-02 13:07] VITALS: O2SAT 99
--- NOTE | 2024-05-02 13:09 | EXP.HP ---
History of Present Illness *Admission Date: 05/02/24 *Reason for visit:: Personal history of adenomatous polyps and family history *History of present illness: Mr. Adams is a 68-year-old gentleman who is here for surveillance colonoscopy secondary to a personal history of adenomatous polyps and family history of colon cancer. The examination is deemed medically necessary for surveillance colonoscopy. The patient has been seen, interviewed and examined prior to the procedure by both myself and the anesthesia provider. [facility] Disclaimer: The information contained in this section may have been updated after the patient was seen, as this information can be updated by other users. 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 [employer] current occupational exposures/hazards: No caffeine: No Other Medical History Have you received the Flu Vaccine for this season: No Have you received the Pneumonia Vaccine: No Review of Systems Review of Systems Review of systems (narrative): Negative *Cardiovascular Comments: Negative *Gastrointestinal Comments: Negative *Genitourinary Comments: Negative *Musculoskeletal Comments: Negative *Neurologic Comments: Negative Meds Home Medications and Allergies Home Medications ?Medication ?Instructions ?Recorded ?Confirmed ?Type gabapentin 300 mg capsule 300 mg PO BID Pain #180 caps 12/14/18 05/02/24 History levothyroxine 75 mcg tablet 75 mcg PO DAILY thyroid #90 tabs 12/14/18 05/02/24 History sitagliptin phos 50 mg-metformin 1 tab PO DAILY Diabetes #60 tabs 12/14/18 05/02/24 History ER 1,000 mg tablet,extend rel 24h mp (Janumet XR) atorvastatin 40 mg tablet 40 mg PO DAILY Cholesterol #90 tabs 01/05/19 05/02/24 History empagliflozin 25 mg tablet 25 mg PO DIRECTED blood sugar 01/05/19 05/02/24 History (Jardiance) #30 tabs glucosamine sulfate 2KCl 1,000 mg 1,000 mg PO DAILY Supplement 03/31/19 05/02/24 History tablet (Glucosamine Relief) sodium,potassium,mag sulfates 17.5 See Rx Instructions PO .COMPLEX 04/21/24 Rx gram-3.13 gram-1.6 gram oral soln #354 mL (Suprep Bowel Prep Kit) New Prescriptions to Start Prescriptions: Allergies Allergy/AdvReac Type Severity Reaction Status Date / Time acetaminophen (From PERCOCET) Allergy Mild Other Verified 05/02/24 12:33 oxycodone (From PERCOCET) Allergy Mild Other Verified 05/02/24 12:33 Exam Data for Last 24 hours Vital signs and Labs for Last 24 Hours: Temp Pulse Resp BP Pulse Ox O2 Del Method O2 Flow Rate 97.0 F L 66 18 120/80 97 Nasal Cannula 5 05/02/24 12:37 05/02/24 12:37 05/02/24 12:37 05/02/24 12:37 05/02/24 12:37 05/02/24 13:07 05/02/24 13:07 *Routine HEENT Exam Head: Present normocephalic Eye: Present EOMI and PERRL ENT: Present mucous membranes moist *Routine Neck Exam Neck: Present supple *Routine Respiratory Exam Respiratory: Present CTA bilaterally *Routine Cardiovascular Exam Cardiovascular: Present RRR *Routine Abdominal Exam Abdominal: Present soft and normoactive bowel sounds; Absent tenderness *Routine Rectal Exam Rectal:: deferred *Routine Genitalia Exam Genitalia:: deferred *Routine Extremities Exam Extremities: Absent cyanosis, clubbing or edema *Routine Skin Exam Skin: Present warm; Absent rash *Routine Neurological Exam Neurological: Present alert and oriented X3 Assessment and Plan *Assessment and plan (1) Personal history of adenomatous and serrated colon polyps: Status: Acute Category: Medical Code(s): Z86.0101 - Personal history of adenomatous and serrated colon polyps (2) Family history of colon cancer in mother: Status: Acute Category: Medical Code(s): Z80.0 - Family history of malignant neoplasm of digestive organs Plan A/P: 1. Personal history of adenomatous colon polyps and family history of colon cancer is the preprocedural diagnosis. The patient will be anesthetized/sedated using MAC sedation. The patient has been seen and examined. Cardiac and lung assessment prior to the examination is stable. Proceed with planned surveillance colonoscopy
--- NOTE | 2024-05-02 13:10 | P.PCN_ITS ---
[facility] Procedure Note Date: 05/02/24 Time: 13:28 Procedure Note:: Colonoscopy Procedure Report: Colonoscopy with cold snare polypectomy Endoscopist: Igor Oleary II, MD Referring physician: Christopher Moore MD Date of Procedure: May 02, 2024 Equipment: Olympus 190 variable stiffness pediatric colonoscope Sedation: MAC sedation Indication: Mr. Adams is a 68-year-old gentleman who is here for follow-up surveillance colonoscopy secondary to a personal history of adenomatous colon polyps and strong family history of colon cancer. He did have a colonoscopy in 2015 and had 4 polyps (tubular adenomas x 4) removed. His last colonoscopy with fl in April 2019 revealed 2 polyps (tubular adenomas x 2) which were removed. He does state that his mother had colon cancer twice and this was initially diagnosed in her 40s or 50s. His maternal grandmother and 2 maternal aunts had colon cancer. He reports no abdominal pain, weight loss, change in his bowel habits or rectal bleeding. Procedure: Prior to the procedure, a history and physical exam was performed, and patient's medications and allergies were reviewed. The risks, benefits and alternatives of the sedation and procedure were discussed with the patient. All questions were answered and informed consent was obtained. The patient was brought to the procedure room. Patient identification and proposed procedure were verified by the physician and the nurse. The patient was placed in a left lateral decubitus position and the scope was passed under direct vision. Throughout the procedure, the patient's blood pressure, pulse, and oxygen saturations were monitored continuously. The colonoscopy was accomplished without difficulty. The patient tolerated the procedure well. Findings: On digital rectal examination there was normal rectal tone. There were no external hemorrhoids. The colonoscope was introduced through the anal canal to the rectum and advanced to the cecum. The ileocecal valve and appendiceal orifice were identified. The scope was advanced a short distance into the ileum which appeared grossly normal. The scope was then withdrawn into the colon. The cecum, ascending and transverse colon were normal. There were 4 polyps (descending x 2 (4 and 5 mm) and sigmoid x 2 (4 and 5 mm)). These were removed via cold snare polypectomy. The remainder of the rectosigmoid and rectum were normal. Upon retroflexion within the rectum there were grade 1-2 internal hemorrhoids.The preparation was fair throughout with some moderate yellow liquid and more residue in the right colon. The cecal time was 12 minutes. Impression: 1. Diminutive colonic polyps x 4 2. Fair preparation 3. Grade 1-2 internal hemorrhoids Plan: I will follow-up the polyp histology and recommend repeat surveillance colonoscopy again in 5 years based upon his past and present history of adenomatous polyps and his family history.
[2024-05-02 13:27] LABS: POC Glucose,Bedside 97 (70-110)
[2024-05-02 13:31] VITALS: BP 101/62; PULSE 66; RESP 18; TEMP 36.2; O2SAT 96
[2024-05-02 13:41] VITALS: BP 101/53; PULSE 62; RESP 16; O2SAT 96
[2024-05-02 13:51] VITALS: BP 108/68; PULSE 72; RESP 16; O2SAT 94
[2024-05-02 14:01] VITALS: BP 120/65; PULSE 64; RESP 16; O2SAT 96
--- NOTE | 2024-05-02 14:11 | EXP.ANES.CKL ---
[facility] Disclaimer: The information contained in this section may have been updated after the patient was seen, as this information can be updated by other users. 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 [employer] current occupational exposures/hazards: No caffeine: No [facility] Anesthesia Checklist Patient Identification Patient Identification: Arm Band Structural Data Admitted From: Home Planned Operative Procedure/s: Colonoscopy Consent for Planned Operative Procedure(s) Verified: Yes Verified Documents: Surgical Consent and History and Physical NPO Status Verified Time NPO: 00:00 Additional verifications Anesthesia Reactions: No Hx Blood Transfusions: No Blood Transfusion Reaction: No Airway Assessment Mallampati Score:: Class II C-Spine Mobility Assessed: Yes TMJ Mobility Assessed: Yes Neurological Assessment Level of Consciousness: Awake, Alert and Appropriate Anesthesia Plan Anesthesia Risk discussed: Yes Anesthesia Plan: Verified ASA Class: II Anesthesia Type: MAC
== END 2024-05-02 14:05 | disposition home or self-care (01) ==
PROVIDERS: PCP Family Medicine; Visit Provider Internal Medicine Gastroenterology
PROC: (CPT 45385; principal; 2024-05-02 13:30)
DX: K63.5 Polyp of colon (principal); K64.8 Other hemorrhoids; Z86.0101 Personal history of adenomatous and serrated colon polyps; Z80.0 Family history of malignant neoplasm of digestive organs; E11.8 Type 2 diabetes mellitus with unspecified complications; Z79.84 Long term (current) use of oral hypoglycemic drugs
CPT/HCPCS: 45385; 82962; 88305; J7120